=== PATIENT | male | born 1965 | race Caucasian/White ===

== ENCOUNTER 2021-05-13 21:29 | Inpatient (IN) | payer OTHER ==
[~2021-05-13] VITALS: Ht 177.8 cm; Wt 111.4 kg
[2021-05-14 00:22] LABS: HEMOGLOBIN 16.4 gm/dl (14.0-17.5); RED BLOOD COUNT 5.04 M/UL (4.20-5.50); WHITE BLOOD COUNT 13.7 K/UL (4.5-11.0)
[2021-05-14 00:41] LABS: BUN/CREATININE RATIO 11 (0-10)
[2021-05-14] MEDS ORDERED: LISINOPRIL40 MG PO (04:04)
[2021-05-14] MEDS ORDERED: HYDROCHLOROTHIA25 MG PO (04:05)
[2021-05-14] MEDS ORDERED: LOVASTATIN40 MG PO (04:06)
[2021-05-14] MEDS ORDERED: METOPROLOL TAR100 MG PO (04:07)
[2021-05-14] MEDS ORDERED: OMEPRAZOLE20 MG PO (04:07)
[2021-05-14] MEDS ORDERED: PAROXETINE HCL20 MG PO (04:08)
--- NOTE | 2021-05-14 05:31 | NUR ---
NOTIFIED DR. HERRERA THAT MEDS ARE READY TO RECONCILE
[2021-05-14 08:45] LABS: HEMOGLOBIN 15.2 gm/dl (14.0-17.5); RED BLOOD COUNT 4.75 M/UL (4.20-5.50); WHITE BLOOD COUNT 10.9 K/UL (4.5-11.0)
[2021-05-14 09:01] LABS: BUN/CREATININE RATIO 12 (0-10)
[2021-05-15] MEDS ORDERED: ROXICODONE TAB 55 MG GT (07:50)
[2021-05-15] MEDS ORDERED: LOVENOX40 MG/0.4 SQ (07:50)
[2021-05-15 11:11] LABS: HEMOGLOBIN 14.9 gm/dl (14.0-17.5); RED BLOOD COUNT 4.63 M/UL (4.20-5.50); WHITE BLOOD COUNT 12.4 K/UL (4.5-11.0)
[2021-05-15 11:39] LABS: BUN/CREATININE RATIO 14 (0-10)
[2021-05-15] MEDS ORDERED: NICOTINE PATCH1 EAC2 TOP (18:42)
== END 2021-05-15 20:10 | disposition home or self-care (01) | DRG 493 ==
LOC: ER1 21:29 → CDU 23:35 → M/S 23:35
PROVIDERS: Emergency Medicine; Internal Medicine; Orthopaedic Surgery; ADMIT Internal Medicine
PROC: 2W3RX1Z Immobilization of Left Lower Leg using Splint (ICD-10-PCS; 2021-05-13)
PROC: 0QSH35Z Reposition Left Tibia with External Fixation Device, Percutaneous Approach (ICD-10-PCS; principal; 2021-05-14 07:30)
PROC: 0QSKXZZ Reposition Left Fibula, External Approach (ICD-10-PCS; 2021-05-14 07:30)
DX: S82.872A Displaced pilon fracture of left tibia, initial encounter for closed fracture (principal); E87.1 Hypo-osmolality and hyponatremia; Z20.822 Contact with and (suspected) exposure to COVID-19; I10 Essential (primary) hypertension; E78.5 Hyperlipidemia, unspecified; F17.210 Nicotine dependence, cigarettes, uncomplicated; S82.492A Other fracture of shaft of left fibula, initial encounter for closed fracture; E66.9 Obesity, unspecified; F41.9 Anxiety disorder, unspecified; W11.XXXA Fall on and from ladder, initial encounter; Y92.009 Unspecified place in unspecified non-institutional (private) residence as the place of occurrence of the external cause; Z90.49 Acquired absence of other specified parts of digestive tract; Z83.3 Family history of diabetes mellitus; Z72.89 Other problems related to lifestyle; Z68.30 Body mass index [BMI] 30.0-30.9, adult
CPT/HCPCS: 29515; 36415; 71045; 73590; 73610; 73630; 73700; 76000; 80053; 80061; 80307; 82550; 82553; 84484; 85025; 85027; 85610; 86850; 86900; 86901; 93005; 96374; 97161; 97166; 97535; 99284; C1713; G0480; J1100; J1650; J2001; J2270; J2405; J2704; J3010; J7120; U0002

== ENCOUNTER → 2021-09-23 | Outpatient (CLI) | payer OTHER ==
[~2021-09-23] MED LIST: HYDROCHLOROTHIA25 MG PO; LISINOPRIL40 MG PO; LOVASTATIN40 MG PO; LOVENOX40 MG/0.4 SQ; METOPROLOL TAR100 MG PO; NICOTINE PATCH1 EAC2 TOP; OMEPRAZOLE20 MG PO; PAROXETINE HCL20 MG PO; ROXICODONE TAB 55 MG GT
== END ==
LOC: WCC 08:28
DX: T81.89XA Other complications of procedures, not elsewhere classified, initial encounter (principal); I10 Essential (primary) hypertension; E66.01 Morbid (severe) obesity due to excess calories; Z72.0 Tobacco use; Z68.37 Body mass index [BMI] 37.0-37.9, adult
CPT/HCPCS: G0463